=== PATIENT | male | born 1980 | race Caucasian/White ===

== ENCOUNTER 2017-09-30 17:51 | Emergency (ER) | payer SELFPAY ==
[~2017-09-30] VITALS: Ht 185.4 cm; Wt 118.0 kg
[2017-09-30] MEDS ORDERED: LISI-167 PO (18:20)
[2017-09-30] MEDS ORDERED: CLON-275 PO (18:21)
[2017-09-30] MEDS ORDERED: LISINOPRIL 20 MG TABLET ONE (19:25)
[2017-09-30] MEDS ORDERED: LORazepam 2 MG/ML, 1ML ONE (19:26)
[2017-09-30] MEDS ORDERED: LISINOPRIL 20 MG TABLET PO ONE (19:30)
[2017-09-30] MEDS ORDERED: LORazepam 2 MG/ML, 1ML IM ONE (19:30)
[2017-09-30 20:27] VITALS: BP 159/110
== END 2017-09-30 20:54 | disposition home or self-care (01) ==
LOC: ED 20:46
DX: I10 Essential (primary) hypertension (principal); F43.0 Acute stress reaction; J45.909 Unspecified asthma, uncomplicated; F17.200 Nicotine dependence, unspecified, uncomplicated
CPT/HCPCS: 96372; 99283; J2060